=== PATIENT | male | born 2000 | race Caucasian/White ===

== ENCOUNTER 2023-04-07 05:01 | Emergency (ER) | payer OTHER | END 2023-04-07 06:02 | disposition home or self-care (01) | LOC: JD.ED 05:01 | DX: S06.9XAD Unspecified intracranial injury with loss of consciousness status unknown, subsequent encounter (principal); G56.21 Lesion of ulnar nerve, right upper limb; V89.2XXA Person injured in unspecified motor-vehicle accident, traffic, initial encounter; Z88.0 Allergy status to penicillin | CPT/HCPCS: 99283 ==